=== PATIENT | male | born 1970 | race Caucasian/White ===

== ENCOUNTER 2024-09-28 17:39 | Emergency (ER) | payer SELFPAY ==
[~2024-09-28] VITALS: Ht 162.6 cm; Wt 61.8 kg
[2024-09-28 18:00] LABS: BASO # 0.02 K/mm3 (0.02-0.10); EOS # 0.13 K/mm3 (0.04-0.40); EOS % 1.8 % (0.0-4.0); HEMATOCRIT 33.9 % (42.0-52.0); HEMOGLOBIN 11.4 g/dL (13.5-18.0); LYMPH# 1.49 K/mm3 (1.50-4.00); MEAN CELL VOLUME 89 fl (78-100); MEAN CORPUSCULAR HEMOGLOBIN 30 pg (27-31); MEAN CORPUSCULAR HGB CONC 34 g/dL (33-37); MEAN PLATELET VOLUME 9.5 fl (7.4-10.4); NEU # 4.89 K/mm3 (1.40-6.50); PLATELET COUNT 218 K/mm3 (130-400); RED CELL DISTRIBUTION WIDTH 13.2 % (11.5-14.5)
[2024-09-28] MEDS ORDERED: Ondansetron 4 MG/2 ML VIAL IV ONE (18:00)
[2024-09-28 18:05] LABS: ALBUMIN 3.3 g/dL (3.5-5.0); SODIUM 141 mmol/L (136-145)
[2024-09-28] MEDS ORDERED: DILANTIN30 MG (18:05)
[2024-09-28] MEDS ORDERED: CYMBALTA20 MG (18:05)
[2024-09-28] MEDS ORDERED: PROPRANOLOL HCL80 M4 (18:06)
[2024-09-28 18:07] LABS: CALCIUM 7.8 mg/dL (8.3-10.5)
[2024-09-28] MEDS ORDERED: ASPIRIN 81M81 MG/TA2 PO (18:07)
[2024-09-28] MEDS ORDERED: ATORVASTATIN CA10 MG (18:07)
[2024-09-28 18:08] LABS: GLUCOSE 97 mg/dL (75-110); TOTAL PROTEIN 5.2 g/dL (6.4-8.3)
[2024-09-28 18:09] LABS: CARBON DIOXIDE 25 mmol/L (22-29)
[2024-09-28 18:10] LABS: TOTAL BILIRUBIN 0.5 mg/dL (0.2-1.2)
[2024-09-28 18:13] LABS: AST-SGOT 16 U/L (5-34)
[2024-09-28 18:14] LABS: ALT/SGPT 12 U/L (0-55)
[2024-09-28 18:15] LABS: LIPASE 8 U/L (8-78)
[2024-09-28 18:21] LABS: TROPONIN-I < 0.030 ng/mL (0.00-0.033)
[2024-09-28] MEDS ORDERED: Acetaminophen 500 MG TAB PO ONE (18:30)
[2024-09-28 20:34] VITALS: BP 118/75
== END 2024-09-28 20:34 | disposition home or self-care (01) ==
LOC: ED 17:39
PROVIDERS: Family Medicine
DX: R07.89 Other chest pain (principal); E83.51 Hypocalcemia; R91.1 Solitary pulmonary nodule; D64.9 Anemia, unspecified; R94.31 Abnormal electrocardiogram [ECG] [EKG]; F17.210 Nicotine dependence, cigarettes, uncomplicated; Z79.82 Long term (current) use of aspirin
CPT/HCPCS: J2405